=== PATIENT | male | born 1985 | race Caucasian/White ===

== ENCOUNTER 2018-06-30 21:54 | Emergency (ER) | payer SELFPAY ==
[2018-06-30 22:10] VITALS: BP 148/94; PULSE 70; RESP 20; TEMP 97.8; O2SAT 97
[2018-06-30 22:21] LABS: BASO % 0.3 % (0.0-2.0); EOS % 0.4 % (0.0-4.0); HEMOGLOBIN 13.4 g/dL (12.0-18.0); LYMPH # 1.6 K/uL (1.0-4.3); LYMPH % 14.1 % (20.0-40.0); MEAN CELL VOLUME 85.3 fL (80.0-94.0); MEAN CORPUSCULAR HEMOGLOBIN 27.5 pg (27.0-31.0); MEAN CORPUSCULAR HGB CONC 32.3 g/dL (33.0-37.0); MONO # 0.5 K/uL (0.0-0.8); MONO % 4.7 % (0.0-10.0); NEUT % 80.5 % (50.0-75.0); RBC 4.86 Mil/uL (4.40-5.90); RED CELL DISTRIBUTION WIDTH 13.1 % (11.5-14.5); WHITE BLOOD COUNT 11.1 K/uL (4.8-10.8)
[2018-06-30 22:24] LABS: SQUAMOUS EPITHIAL < 1 /hpf (0-5); URINE BILIRUBIN NEGATIVE (NEGATIVE); URINE BLOOD 3+ (NEGATIVE); URINE CLARITY Hazy (Clear); URINE COLOR Yellow (YELLOW); URINE GLUCOSE (UA) NORMAL (Normal); URINE LEUKOCYTE ESTERASE NEG Leu/uL (Negative); URINE PROTEIN 2+ mg/dL (NEGATIVE); URINE UROBILINOGEN NORMAL mg/dL (0.2-1.0)
[2018-06-30 22:38] LABS: ALB/GLOB RATIO 1.6 (1.0-2.1); ALBUMIN 4.5 g/dL (3.5-5.0); ALT/SGPT 33 U/L (21-72); AST/SGOT 31 U/L (17-59); BLOOD UREA NITROGEN 15 mg/dL (9-20); CALCIUM 8.6 mg/dl (8.6-10.4); GFR NON-AFRICAN AMERICAN > 60
--- NOTE | 2018-07-01 00:42 | C.PDOC ---
History Of Present Illness 32 year old male with no pertinent medical history presents to the ED complaining of left sided flank pain for 2 hours prior to arrival. Reports pain is constant and radiates to the front and back. Associated symptoms include one episode of vomiting. Denies any fever, diarrhea. Time Seen by Provider: 06/30/18 22:22 Chief Complaint (Nursing): Male Genitourinary History Per: Patient History/Exam Limitations: no limitations Onset/Duration Of Symptoms: Hrs Current Symptoms Are (Timing): Still Present Quality Of Discomfort: "Pain" Associated Symptoms: Vomiting, Back Pain. denies: Fever, Chills, Diarrhea, Chest Pain, Urinary Symptoms Past Medical History Reviewed: Historical Data, Nursing Documentation, Vital Signs Vital Signs: Last Vital Signs Temp 97.8 F 06/30/18 22:07 Pulse 70 06/30/18 22:07 Resp 20 06/30/18 22:07 BP 148/94 H 06/30/18 22:07 Pulse Ox 97 06/30/18 22:07 - Medical History PMH: No Chronic Diseases Surgical History: No Surg Hx Family History: States: No Known Family Hx - Social History Hx Alcohol Use: No Hx Substance Use: No Review Of Systems Constitutional: Negative for: Fever, Chills Cardiovascular: Negative for: Chest Pain Respiratory: Negative for: Shortness of Breath Gastrointestinal: Positive for: Vomiting, Abdominal Pain. Negative for: Diarrhea Genitourinary: Negative for: Dysuria, Hematuria Musculoskeletal: Positive for: Back Pain Physical Exam - Physical Exam Appears: Non-toxic, No Acute Distress Skin: Warm, Dry, No Rash Head: Normacephalic Eye(s): bilateral: Normal Inspection Nose: Normal Oral Mucosa: Moist Neck: Supple Chest: Symmetrical Cardiovascular: Rhythm Regular Respiratory: Normal Breath Sounds, No Rales, No Rhonchi, No Wheezing Gastrointestinal/Abdominal: Soft, Tenderness (left upper quadrant/left flank ), No Distention, No Guarding, No Rebound Back: No CVA Tenderness Extremity: Bilateral: Atraumatic Pulses: Left Radial: Normal, Right Radial: Normal Neurological/Psych: Oriented x3, Normal Speech Gait: Steady ED Course And Treatment - Laboratory Results Result Diagrams: 06/30/18 22:16 06/30/18 22:16 Lab Results: Total Bilirubin 1.0 mg/dL (0.2-1.3) 06/30/18 22:16 AST 31 U/L (17-59) 06/30/18 22:16 ALT 33 U/L (21-72) 06/30/18 22:16 Alkaline Phosphatase 91 U/L (38-126) 06/30/18 22:16 Total Protein 7.4 g/dL (6.3-8.3) 06/30/18 22:16 Albumin 4.5 g/dL (3.5-5.0) 06/30/18 22:16 Globulin 2.9 gm/dL (2.2-3.9) 06/30/18 22:16 Albumin/Globulin Ratio 1.6 (1.0-2.1) 06/30/18 22:16 Urine Color Yellow (YELLOW) 06/30/18 22:16 Urine Clarity Hazy (Clear) 06/30/18 22:16 Urine pH 5.0 (5.0-8.0) 06/30/18 22:16 Ur Specific [place] 1.024 (1.003-1.030) 06/30/18 22:16 Urine Protein 2+ mg/dL (NEGATIVE) H 06/30/18 22:16 Urine Glucose (UA) Normal mg/dL (Normal) 06/30/18 22:16 Urine Ketones Trace mg/dL (NEGATIVE) 06/30/18 22:16 Urine Blood 3+ (NEGATIVE) H 06/30/18 22:16 Urine Nitrate Negative (NEGATIVE) 06/30/18 22:16 Urine Bilirubin Negative (NEGATIVE) 06/30/18 22:16 Urine Urobilinogen Normal mg/dL (0.2-1.0) 06/30/18 22:16 Ur Leukocyte Esterase Neg Abraham/uL (Negative) 06/30/18 22:16 Urine WBC (Auto) 6 /hpf (0-5) H 06/30/18 22:16 Urine RBC (Auto) 868 /hpf (0-3) H 06/30/18 22:16 Ur Squamous Epith Cells < 1 /hpf (0-5) 06/30/18 22:16 O2 Sat by Pulse Oximetry: 97 (RA) Pulse Ox Interpretation: Normal - CT Scan/US CT abd/pel Other Rad Studies (CT/US): Read By Radiologist, Radiology Report Reviewed CT/US Interpretation: EXAM: CT Abdomen and Pelvis without IV contrast. CLINICAL HISTORY: Right flank abd pain. TECHNIQUE: Axial computed tomography images of the abdomen and pelvis without intravenous contrast. 0.00 mGy-cm. CONTRAST: Without. COMPARISON: None provided. FINDINGS: LUNG BASES: The lung bases appear clear. No pleural effusions are seen. LIVER: Unremarkable. GALLBLADDER AND BILE DUCTS: The gallbladder appears within normal limits. No radioopaque gallstones are seen. No biliary ductal dilatation is evident. PANCREAS: Unremarkable. SPLEEN: Unremarkable. ADRENAL GLANDS: Unremarkable. KIDNEYS, URETERS, AND BLADDER: There are a few punctate nonobstructing left renal calculi. There is mild left hydronephrosis and proximal hydroureter to level of L3-L4 where there is an obstructing 3-4 mm calculus on series 3, image 117. This is also appreciated on series 601, image 68. STOMACH AND BOWEL: Unremarkable appearance of the stomach and bowel. No evidence of bowel obstruction. No evidence suggesting enteritis or colitis. APPENDIX: No evidence of acute appendicitis on CT examination. PERITONEUM: No free fluid. No free air. LYMPH NODES: There are several normal-sized lymph nodes in the right lower quadrant medial to the cecum. This is nonspecific but can be seen in mesenteric adenitis, please correlate clinically. REPRODUCTIVE: Unremarkable as visualized. VASCULATURE: No evidence of abdominal aortic aneurysm. BONES: No aggressive appearing osseous lesion. No acute osseous pathology evident. IMPRESSION: 1. There are a few punctate nonobstructing left renal calculi. 2. There is mild left hydronephrosis and proximal hydroureter to level of L3-L4 where there is an obstructing 3-4 mm calculus on series 3, image 117. 3. There are several normal-sized lymph nodes in the right lower quadrant medial to the. This is nonspecific but can be seen in mesenteric adenitis, please correlate clinically. Medical Decision Making Medical Decision Making: Plan - CT abd/Pel - Toradol 15mg IVP - Flomax 0.4mg PO CT scan shows 3-4mm calculus, urolithiasis. On reeval, patient reports feeling improvement of symptoms. Patient given Rx for pain medications. Educated on straining of urine to pass stone. Instructed to follow up with Urologist, Dr. Ritter. Disposition Counseled Patient/Family Regarding: Studies Performed, Diagnosis, Need For Followup, Rx Given - Disposition Referrals: Deep Ritter Jr., MD [Staff Provider] - Disposition: HOME/ ROUTINE Disposition Time: 00:42 Condition: IMPROVED Prescriptions: Hydrocodone/Acetaminophen [Vicodin Es 7.5-300 mg Tablet] 1 each PO Q6H PRN #12 tablet PRN Reason: Pain, Severe (8-10) Ibuprofen [Motrin Tab] 800 mg PO TID PRN #30 tab PRN Reason: Pain, Moderate (4-7) Tamsulosin [Flomax] 0.4 mg PO DAILY #5 cap Instructions: Kidney Stones (DC) Forms: [employer] 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 - Scribe Statement The provider has reviewed the documentation as recorded by the [employer] Severino All medical record entries made by the [employer] were at my direction and personall y dictated by me. I have reviewed the chart and agree that the record accurately reflects my personal performance of the history, physical exam, medical decision making, and the department course for this patient. I have also personally directed, reviewed, and agree with the discharge instructions and disposition.
--- NOTE | 2018-07-01 09:40 | CT ---
Date of service: 06/30/2018 PROCEDURE: CT Abdomen and Pelvis without intravenous contrast HISTORY: flank pain/renal stone COMPARISON: None. TECHNIQUE: Multiple contiguous axial images were performed through the abdomen and pelvis without the use of intravenous contrast. Subsequently, sagittal and coronal reformatted images were obtained. Radiation dose: Total exam DLP = 1198.03 mGy-cm. This CT exam was performed using one or more of the following dose reduction techniques: Automated exposure control, adjustment of the mA and/or kV according to patient size, and/or use of iterative reconstruction technique. FINDINGS: LOWER THORAX: Mild scattered atelectasis at the lung bases. Mild nodular consolidation within the inferior aspect of the left upper lobe. LIVER: Mild fatty infiltration of the liver. GALLBLADDER AND BILE DUCTS: Unremarkable. PANCREAS: Unremarkable. No gross lesion or ductal dilatation. SPLEEN: Unremarkable. ADRENALS: Unremarkable. No mass. KIDNEYS AND URETERS: Right kidney: No calculi or hydronephrosis. Left Kidney: Few small calculi throughout the left kidney including in the upper pole measuring 2 millimeters and midpole measuring 2 millimeters. Mild left hydroureteronephrosis to the level of an obstructing calculi in the proximal to mid left ureter measuring 2.6 millimeters best seen on series 3, image 117. VASCULATURE: Unremarkable. No aortic aneurysm. No aortic atherosclerotic calcification or mural plaque present. BOWEL: Underdistention of the left hemicolon. Fecal retention in the right hemicolon. APPENDIX: Appendix not well visualized. PERITONEUM: Unremarkable. No free fluid. No free air. LYMPH NODES: Few shotty para-aortic and inguinal lymph nodes. Few shotty lymph nodes seen within the right lower abdomen which may represent a mesenteric adenitis. Clinical correlation. BLADDER: Mild thickening of the urinary bladder wall. REPRODUCTIVE: Unremarkable. BONES: No acute fracture. OTHER FINDINGS: Small fat containing umbilical hernia. IMPRESSION: Mild left renal hydroureteronephrosis with obstructing calculus seen within the proximal to mid left ureter measuring 2.6 millimeters best seen on series 3, image 117. Additional calculi in the left kidney as described above. Additional findings as above. A preliminary report was generated at 12:18 a.m. on 07/01/[address] Ike Zhu from [employer]
== END 2018-07-01 01:02 | disposition home or self-care (01) ==
LOC: C.ER 21:54
DX: N20.1 Calculus of ureter (principal)
CPT/HCPCS: 74176; 80053; 81001; 85025; 96374; 99285; J1885